=== PATIENT | female | born 1930 | race Caucasian/White ===

== ENCOUNTER 2018-08-08 21:15 | Inpatient (IN) | payer OTHER ==
[2018-08-08] MEDS: SOD CHLORIDE 0.9% 2,860 ML IV (22:01)
[2018-08-08 22:05] LABS: WHITE BLOOD COUNT 7.9 10^3/ul (4.8-10.8)
[2018-08-08 22:05] LABS: ABNORMAL IP MESSAGE 1; HEMATOCRIT 36.7 % (37.0-47.0); MEAN CORPUSCULAR HEMOGLOBIN 30.8 pg (29.0-33.0); MEAN CORPUSCULAR HGB CONC 32.7 g/dl (32.0-37.0); MEAN CORPUSCULAR VOLUME 94.1 fl (82.0-101.0); MEAN PLATELET VOLUME 13.1 fl (7.4-10.4); NUCLEATED RED BLOOD CELLS% 0.3 /100WBC (0.0-0.0); PLATELET COUNT 53 10^3/UL (140-415)
[2018-08-08 22:07] LABS: POSITIVE DIFF @See below
[2018-08-08 22:08] LABS: ADD MAN DIFF? YES
[2018-08-08 22:21] LABS: AMMONIA 55 umol/l (9-30)
[2018-08-08 22:23] LABS: ALANINE AMINOTRANSFERASE 36 IU/L (13-69); ALBUMIN 2.2 g/dl (3.3-4.9); ALBUMIN/GLOBULIN RATIO 0.88; ALKALINE PHOSPHATASE 116 IU/L (42-121); ANION GAP 9 (5-13); ASPARTATE AMINO TRANSFERASE 53 IU/L (15-46); BILIRUBIN,INDIRECT 1.1 mg/dl (0-1.1); BILIRUBIN,TOTAL 1.1 mg/dl (0.2-1.3); BLOOD UREA NITROGEN 39 mg/dl (7-20); CALCIUM 9.3 mg/dl (8.4-10.2); CARBON DIOXIDE 22 mmol/L (21-31); CHLORIDE 108 mmol/L (97-110); CREATININE 0.72 mg/dl (0.44-1.00); GLUCOSE 169 mg/dl (70-220); POTASSIUM 3.9 mmol/L (3.5-5.1); SODIUM 139 mmol/L (135-144); TOTAL PROTEIN 4.7 g/dl (6.1-8.1)
[2018-08-08 22:29] LABS: LACTIC ACID 4.3 mmol/L (0.5-2.0)
[2018-08-08 22:32] LABS: ACETAMINOPHEN < 10.0 ug/ml (10.0-30.0); ETHANOL < 10.0 mg/dl (0-0); SALICYLATE < 1.0 mg/dl (5.0-30.0)
[2018-08-08 22:37] LABS: ANISOCYTOSIS 2+ (0-0); BAND NEUTROPHILS #M 1.5 10^3/ul (0.0-0.6); BAND NEUTROPHILS % (M) 19 % (0-4); GIANT THROMBO% (M) 3 % (0-0); LYMPHOCYTES #M 0.3 10^3/ul (0.8-2.9); LYMPHOCYTES % (M) 5 % (15-51); MONOCYTES % (M) 1 % (0-11); PLATELET ESTIMATE DECREASED; POLYCHROMASIA 2+ (0-0); SEGMENTED NEUTROPHILS (M) % 75 % (39-77); SMUDGE%M 4 % (0-0)
[2018-08-08 22:39] LABS: FREE THYROXINE INDEX (Calc) 1.87 ug/ml (0.65-3.89); T4 (THYROXINE) 3.6 ug/dl (5.5-11.0); TROPONIN-I 0.727 ng/ml (0.000-0.120)
[2018-08-08 23:07] LABS: AMPHETAMINE/METHAMPHETAMINE Negative (NEGATIVE); BARBITURATES Negative (NEGATIVE); BENZODIAZEPINES Negative (NEGATIVE); CANNABINOIDS Negative (NEGATIVE); COCAINE Negative (NEGATIVE); OPIATES Negative (NEGATIVE)
[2018-08-08 23:42] LABS: ADD UMIC YES; UR ASCORBIC ACID NEGATIVE (NEGATIVE); UR BACTERIA FEW /HPF (NONE SEEN); UR BILIRUBIN (Dip) NEGATIVE (NEGATIVE); UR BLOOD (Dip) NEGATIVE (NEGATIVE); UR CLARITY SLIGHTLY CLOUDY (CLEAR); UR COLOR AMBER (YELLOW); UR GLUCOSE (Dip) NEGATIVE (NEGATIVE); UR KETONES (Dip) NEGATIVE (NEGATIVE); UR LEUKOCYTE ESTERASE (Dip) TRACE Leu/ul (NEGATIVE); UR MUCUS FEW /HPF (NONE SEEN); UR NITRITE (Dip) NEGATIVE (NEGATIVE); UR RBC 2 /HPF (0-5); UR SPECIFIC GRAVITY (Dip) 1.021 (1.003-1.030); UR SQUAMOUS EPITHELIAL CELL FEW /HPF (FEW); UR TOTAL PROTEIN (Dip) NEGATIVE (NEGATIVE); UR TRANSITIONAL EPI CELL FEW /HPF (NONE SEEN); UR UROBILINOGEN (Dip) 1+ mg/dL (NEGATIVE); UR WBC 15 /HPF (0-5)
[2018-08-08] MEDS: CEFEPIME 2GM/50 ML (PMX) 50 ML IVPB (23:49)
[2018-08-08] MEDS: VANCOMYCIN 1 GM (PMX) 250 ML IVPB (23:49)
[2018-08-08 23:57] LABS: LACTIC ACID 3.7 mmol/L (0.5-2.0)
[2018-08-09] MEDS ORDERED: NACL 0.9% 3 ML SYG IV
[2018-08-09] MEDS ORDERED: ACETAMINOPHEN 325 MG TAB PO
[2018-08-09] MEDS ORDERED: PIPER-TAZO 3.375 GM IV (PMX) 100 ML IVPB
[2018-08-09] MEDS ORDERED: ONDANSETRON 4 MG INJ IV ×2
[2018-08-09] MEDS: ALBUMIN HUMAN 25% 100 ML IV ×3 (01:08→02:09)
[2018-08-09 01:58] LABS: CREATINE KINASE 38 IU/L (23-200)
[2018-08-09 02:00] LABS: LACTIC ACID 3.3 mmol/L (0.5-2.0)
[2018-08-09 02:11] LABS: CK INDEX 12.4
[2018-08-09 02:15] LABS: TROPONIN-I 0.789 ng/ml (0.000-0.120)
[2018-08-09] MEDS: AZTREONAM 1 GM/NS (PMX) 50 ML IVPB (03:42)
[2018-08-09 07:54] LABS: ABNORMAL IP MESSAGE 1; HEMATOCRIT 35.1 % (37.0-47.0); HEMOGLOBIN 11.3 g/dl (12.0-16.0); MEAN CORPUSCULAR HEMOGLOBIN 30.5 pg (29.0-33.0); MEAN CORPUSCULAR HGB CONC 32.2 g/dl (32.0-37.0); MEAN CORPUSCULAR VOLUME 94.6 fl (82.0-101.0); MEAN PLATELET VOLUME 13.4 fl (7.4-10.4); NUCLEATED RED BLOOD CELLS% 0.2 /100WBC (0.0-0.0); PLATELET COUNT 42 10^3/UL (140-415); RED BLOOD COUNT 3.71 10^6/ul (4.20-5.40)
[2018-08-09 07:54] LABS: WHITE BLOOD COUNT 8.5 10^3/ul (4.8-10.8)
[2018-08-09 08:02] LABS: POSITIVE DIFF @See below
[2018-08-09 08:03] LABS: ADD MAN DIFF? YES
[2018-08-09 08:13] LABS: ALANINE AMINOTRANSFERASE 31 IU/L (13-69); ALBUMIN 2.8 g/dl (3.3-4.9); ALKALINE PHOSPHATASE 98 IU/L (42-121); ANION GAP 8 (5-13); ASPARTATE AMINO TRANSFERASE 72 IU/L (15-46); BILIRUBIN,INDIRECT 1.2 mg/dl (0-1.1); BILIRUBIN,TOTAL 1.2 mg/dl (0.2-1.3); BLOOD UREA NITROGEN 38 mg/dl (7-20); CARBON DIOXIDE 21 mmol/L (21-31); CHLORIDE 111 mmol/L (97-110); CREATININE 0.62 mg/dl (0.44-1.00); GLUCOSE 107 mg/dl (70-220); MAGNESIUM 1.9 mg/dl (1.7-2.5); POTASSIUM 4.3 mmol/L (3.5-5.1); SODIUM 140 mmol/L (135-144); TOTAL PROTEIN 5.5 g/dl (6.1-8.1)
[2018-08-09 08:14] LABS: ALBUMIN/GLOBULIN RATIO 1.03; CHOL/HDL RATIO 2.7 RATIO; CHOLESTEROL 81 mg/dl (100-200); HDL CHOLESTEROL 29 mg/dl (33-92); LDL CHOLESTEROL,CALCULATED 39 mg/dl; TRIGLYCERIDES 64 mg/dl (0-149)
[2018-08-09 08:15] LABS: CREATINE KINASE 64 IU/L (23-200)
[2018-08-09 08:16] LABS: LACTIC ACID 2.6 mmol/L (0.5-2.0)
[2018-08-09 08:25] LABS: CK INDEX 18.3
[2018-08-09 08:58] LABS: HEMOGLOBIN A1C 5.2 % (0-5.9)
[2018-08-09] MEDS: ASPIRIN (EC) 325 MG TAB PO (09:23)
[2018-08-09 10:01] LABS: B-TYPE NATRIURETIC PEPTIDE 7210 PG/ML (0-450)
[2018-08-09] MEDS: FUROSEMIDE 20 MG INJ IV ×2 (11:20→18:21)
[2018-08-09 11:33] LABS: ANISOCYTOSIS 1+ (0-0); BAND NEUTROPHILS % (M) 12 % (0-4); BURR CELLS 1+ (0-0); LYMPHOCYTES #M 0.3 10^3/ul (0.8-2.9); LYMPHOCYTES % (M) 4 % (15-51); MONOCYTES % (M) 1 % (0-11); OVALOCYTES 1+ (0-0); PLATELET ESTIMATE DECREASED; POIKILOCYTOSIS 2+ (0-0); POLYCHROMASIA 1+ (0-0); SEG NEUT #M 7.1 10^3/ul (1.6-7.5); SEGMENTED NEUTROPHILS (M) % 83 % (39-77); SMUDGE%M 9 % (0-0)
[2018-08-09 11:39] LABS: CREATINE KINASE 66 IU/L (23-200)
[2018-08-09 11:51] LABS: CK INDEX 21.2
[2018-08-09] MEDS ORDERED: VANCOMYCIN IV PER PHARMACY XX (12:00)
[2018-08-09] MEDS: IOHEXOL 300MG/ML 150 ML BTL (12:14)
[2018-08-09] MEDS: SOD CHLORIDE 0.9% 100 ML (12:14)
[2018-08-09] MEDS: IOHEXOL 14.3 MG(I)/ML (ADULT) BTL PO (12:27)
[2018-08-09] MEDS: VANCOMYCIN 1 GM 250 ML IVPB (13:27)
[2018-08-09] MEDS: MIDAZOLAM 1 MG/ML 2 ML INJ (15:16)
[2018-08-09] MEDS: FENTAnyl 50 MCG/ML VIAL (15:16)
[2018-08-09] MEDS: LIDOCAINE 1% (MDV) 20 ML INJ (15:17)
[2018-08-09 19:20] LABS: CREATINE KINASE 54 IU/L (23-200)
[2018-08-09 19:33] LABS: CK INDEX 25.7
[2018-08-09] MEDS: CEFEPIME 1GM/50 ML (PMX) 50 ML IVPB (20:31)
[2018-08-09] MEDS: ATORVASTATIN 20 MG TAB PO (20:31)
[2018-08-10] MEDS: FUROSEMIDE 20 MG INJ IV ×2 (06:08→17:11)
[2018-08-10 06:09] LABS: ADD MAN DIFF? NO
[2018-08-10 06:21] LABS: ABNORMAL IP MESSAGE 1; BASOPHILS % 0.3 % (0.0-2.0); EOSINOPHILS # 0.1 10^3/ul (0.0-0.5); EOSINOPHILS % 0.6 % (0.0-7.0); HEMATOCRIT 37.9 % (37.0-47.0); HEMOGLOBIN 12.7 g/dl (12.0-16.0); LYMPHOCYTES # 0.8 10^3/ul (0.8-2.9); LYMPHOCYTES % 7.7 % (15.0-51.0); MEAN CORPUSCULAR HEMOGLOBIN 31.1 pg (29.0-33.0); MEAN CORPUSCULAR HGB CONC 33.5 g/dl (32.0-37.0); MEAN CORPUSCULAR VOLUME 92.7 fl (82.0-101.0); MONOCYTES % 9.5 % (0.0-11.0); NEUTROPHIL # 8.1 10^3/ul (1.6-7.5); NEUTROPHILS % 81.3 % (39.0-77.0); RED BLOOD COUNT 4.09 10^6/ul (4.20-5.40); RED CELL DISTRIBUTION WIDTH 15.7 % (11.5-14.5)
[2018-08-10 06:31] LABS: POSITIVE DIFF @See below
[2018-08-10 06:32] LABS: PLATELET COUNT 34 10^3/UL (140-415)
[2018-08-10 06:54] LABS: ALANINE AMINOTRANSFERASE 50 IU/L (13-69); ALBUMIN 2.3 g/dl (3.3-4.9); ALBUMIN/GLOBULIN RATIO 0.92; ALKALINE PHOSPHATASE 102 IU/L (42-121); ANION GAP 7 (5-13); ASPARTATE AMINO TRANSFERASE 61 IU/L (15-46); BILIRUBIN,INDIRECT 1.1 mg/dl (0-1.1); BILIRUBIN,TOTAL 1.1 mg/dl (0.2-1.3); BLOOD UREA NITROGEN 38 mg/dl (7-20); CALCIUM 9.1 mg/dl (8.4-10.2); CARBON DIOXIDE 22 mmol/L (21-31); CHLORIDE 112 mmol/L (97-110); CREATININE 0.62 mg/dl (0.44-1.00); GLUCOSE 83 mg/dl (70-220); POTASSIUM 3.8 mmol/L (3.5-5.1); SODIUM 141 mmol/L (135-144); TOTAL PROTEIN 4.8 g/dl (6.1-8.1)
[2018-08-10] MEDS: ASPIRIN 81 MG TAB PO (08:41)
[2018-08-10] MEDS: VANCOMYCIN 1 GM 250 ML IVPB (13:11)
[2018-08-10] MEDS: CEFEPIME 1GM/50 ML (PMX) 50 ML IVPB (21:44)
[2018-08-10] MEDS: ATORVASTATIN 20 MG TAB PO (21:44)
[2018-08-10] MEDS: ACETAMINOPHEN 325 MG TAB PO (21:44)
[2018-08-11] MEDS: FUROSEMIDE 20 MG INJ IV (06:17)
[2018-08-11] MEDS: ASPIRIN 81 MG TAB PO (09:23)
[2018-08-11] MEDS: BISACODYL (EC) 5 MG TAB PO (09:25)
[2018-08-11] MEDS: ACETAMINOPHEN 325 MG TAB PO (10:45)
[2018-08-11] MEDS: COLLAGENASE 5 GM (UD JAR) TOP (14:37)
[2018-08-11] MEDS: VANCOMYCIN 1 GM 250 ML IVPB (14:38)
[2018-08-11] MEDS: CEFEPIME 1GM/50 ML (PMX) 50 ML IVPB (22:56)
[2018-08-11] MEDS: ATORVASTATIN 20 MG TAB PO (22:57)
[2018-08-12] MEDS: FUROSEMIDE 20 MG TAB PO (08:34)
[2018-08-12] MEDS: COLLAGENASE 5 GM (UD JAR) TOP (08:34)
[2018-08-12] MEDS: ASPIRIN 81 MG TAB PO (08:34)
[2018-08-12] MEDS: CEFTRIAXONE 1 GM/50 ML (PMX) 50 ML IVPB (14:23)
[2018-08-12] MEDS: DOCUSATE SODIUM 100 MG CAP PO (16:12)
[2018-08-12] MEDS: BISACODYL (EC) 5 MG TAB PO (21:10)
[2018-08-12] MEDS: ATORVASTATIN 20 MG TAB PO (21:11)
[2018-08-12] MEDS: ACETAMINOPHEN 325 MG TAB PO (22:04)
[2018-08-13] MEDS: ASPIRIN 81 MG TAB PO (09:27)
[2018-08-13] MEDS: FUROSEMIDE 20 MG TAB PO (09:28)
[2018-08-13] MEDS: COLLAGENASE 5 GM (UD JAR) TOP (09:28)
[2018-08-13] MEDS: CEFTRIAXONE 1 GM/50 ML (PMX) 50 ML IVPB (14:04)
[2018-08-13] MEDS ORDERED: ATORVASTATIN 20 MG TAB PO (21:00)
[2018-08-13] MEDS: ATORVASTATIN 20 MG TAB PO (23:20)
[2018-08-14] MEDS: BISACODYL (EC) 5 MG TAB PO (05:42)
[2018-08-14] MEDS ORDERED: ASPIRIN 81 MG TAB PO (09:00)
[2018-08-14] MEDS ORDERED: FUROSEMIDE 20 MG TAB PO (09:00)
[2018-08-14] MEDS: MULTIVITAMINS/MINERALS TAB PO (09:11)
[2018-08-14] MEDS: ASPIRIN 81 MG TAB PO (09:11)
[2018-08-14] MEDS: COLLAGENASE 5 GM (UD JAR) TOP (09:12)
[2018-08-14] MEDS: FUROSEMIDE 20 MG TAB PO (09:14)
[2018-08-14] MEDS: ASCORBIC ACID 250 MG TAB PO (10:42)
[2018-08-14] MEDS: ZINC SULFATE 220 MG CAP PO (10:42)
[2018-08-14] MEDS: CEFTRIAXONE 1 GM/50 ML (PMX) 50 ML IVPB (14:00)
[2018-08-14] MEDS: BALSAM PERU/CASTOR OIL 60 GM TUBE TOP ×2 (16:09→21:17)
[2018-08-14] MEDS: ATORVASTATIN 20 MG TAB PO (21:17)
[2018-08-15] MEDS: ASCORBIC ACID 250 MG TAB PO (09:06)
[2018-08-15] MEDS: MULTIVITAMINS/MINERALS TAB PO (09:07)
[2018-08-15] MEDS: FUROSEMIDE 20 MG TAB PO (09:07)
[2018-08-15] MEDS: ASPIRIN 81 MG TAB PO (09:07)
[2018-08-15] MEDS: ZINC SULFATE 220 MG CAP PO (09:07)
[2018-08-15] MEDS: BALSAM PERU/CASTOR OIL 60 GM TUBE TOP ×2 (09:08→21:40)
[2018-08-15] MEDS: COLLAGENASE 5 GM (UD JAR) TOP (09:08)
[2018-08-15] MEDS: CEFTRIAXONE 1 GM/50 ML (PMX) 50 ML IVPB (14:34)
[2018-08-15] MEDS: ATORVASTATIN 20 MG TAB PO (21:28)
[2018-08-16] MEDS: ZINC SULFATE 220 MG CAP PO (09:00)
[2018-08-16] MEDS: MULTIVITAMINS/MINERALS TAB PO (09:00)
[2018-08-16] MEDS: ASCORBIC ACID 250 MG TAB PO (09:00)
[2018-08-16] MEDS: ASPIRIN 81 MG TAB PO (09:00)
[2018-08-16] MEDS: FUROSEMIDE 20 MG TAB PO (09:00)
[2018-08-16] MEDS: BALSAM PERU/CASTOR OIL 60 GM TUBE TOP ×2 (09:43→20:36)
[2018-08-16] MEDS: COLLAGENASE 5 GM (UD JAR) TOP (10:02)
[2018-08-16 10:23] LABS: AADO2 Arterial 25.2 mmHg (7.0-24.0); Allen Test ACCEPTAB; Arterial Base Excess 1.5 mmol/L (-3.0-3); Arterial Blood Gas Oxygen Sat 98.8 mmHG (95.0-100.0); Arterial COHb 0.4 % (0.0-3.0); Arterial Fraction of Oxyhgb 98.2 % (93.0-99.0); Arterial HCO3 29.3 mmol/L (22.0-26.0); Arterial MetHb 0.2 % (0.0-1.5); Arterial pCO2 61.3 mmhg (35-45); MODE NASAL CANNULA; Site Right Radial
[2018-08-16] MEDS: CEFTRIAXONE 1 GM/50 ML (PMX) 50 ML IVPB (14:15)
[2018-08-16 19:59] LABS: AADO2 Arterial 108.9 mmHg (7.0-24.0); Allen Test ACCEPTAB; Arterial Base Excess 0.3 mmol/L (-3.0-3); Arterial Blood Gas Oxygen Sat 99.2 mmHG (95.0-100.0); Arterial COHb 0.3 % (0.0-3.0); Arterial Fraction of Oxyhgb 98.7 % (93.0-99.0); Arterial HCO3 27.1 mmol/L (22.0-26.0); Arterial MetHb 0.2 % (0.0-1.5); Arterial pCO2 52.5 mmhg (35-45); Blood Gas IEPAP 16/8; MODE MASK - BIPAP; Site Right Radial
[2018-08-16] MEDS: ATORVASTATIN 20 MG TAB PO (20:37)
[2018-08-17 06:15] LABS: ADD MAN DIFF? NO
[2018-08-17 06:26] LABS: ABNORMAL IP MESSAGE 1; BASOPHILS % 0.2 % (0.0-2.0); EOSINOPHILS % 0.2 % (0.0-7.0); HEMATOCRIT 42.5 % (37.0-47.0); HEMOGLOBIN 12.9 g/dl (12.0-16.0); LYMPHOCYTES # 0.5 10^3/ul (0.8-2.9); MEAN CORPUSCULAR HEMOGLOBIN 30.6 pg (29.0-33.0); MEAN CORPUSCULAR HGB CONC 30.4 g/dl (32.0-37.0); MEAN CORPUSCULAR VOLUME 100.7 fl (82.0-101.0); MEAN PLATELET VOLUME 10.9 fl (7.4-10.4); MONOCYTE # 0.5 10^3/ul (0.3-0.9); MONOCYTES % 4.2 % (0.0-11.0); NEUTROPHIL # 10.9 10^3/ul (1.6-7.5); NEUTROPHILS % 90.5 % (39.0-77.0); RED BLOOD COUNT 4.22 10^6/ul (4.20-5.40); RED CELL DISTRIBUTION WIDTH 16.6 % (11.5-14.5)
[2018-08-17 06:33] LABS: PLATELET COUNT 75 10^3/UL (140-415)
[2018-08-17 06:34] LABS: POSITIVE DIFF @See below
[2018-08-17 06:59] LABS: ANION GAP 7 (5-13); BLOOD UREA NITROGEN 41 mg/dl (7-20); CALCIUM 9.2 mg/dl (8.4-10.2); CARBON DIOXIDE 27 mmol/L (21-31); CHLORIDE 110 mmol/L (97-110); CREATININE 0.74 mg/dl (0.44-1.00); GLUCOSE 91 mg/dl (70-220); MAGNESIUM 2.3 mg/dl (1.7-2.5); POTASSIUM 5.4 mmol/L (3.5-5.1); SODIUM 144 mmol/L (135-144)
[2018-08-17 07:27] LABS: PHOSPHORUS 5.3 mg/dl (2.5-4.9)
[2018-08-17] MEDS: FUROSEMIDE 20 MG TAB PO (08:26)
[2018-08-17] MEDS: BALSAM PERU/CASTOR OIL 60 GM TUBE TOP ×2 (08:26→21:06)
[2018-08-17] MEDS: COLLAGENASE 5 GM (UD JAR) TOP (08:26)
[2018-08-17] MEDS: ASPIRIN 81 MG TAB PO (08:26)
[2018-08-17] MEDS: ASCORBIC ACID 250 MG TAB PO (08:26)
[2018-08-17] MEDS: ZINC SULFATE 220 MG CAP PO (08:26)
[2018-08-17] MEDS: MULTIVITAMINS/MINERALS TAB PO (08:26)
[2018-08-17] MEDS ORDERED: LORAZEPAM 2 MG INJ (12:40)
[2018-08-17] MEDS: LORAZEPAM 2 MG INJ IV (13:04)
[2018-08-17] MEDS: LEVETIRACETAM 1000 MG (PMX) 100 ML IVPB (13:16)
[2018-08-17 13:40] LABS: AADO2 Arterial 12.8 mmHg (7.0-24.0); Allen Test ACCEPTAB; Arterial Base Excess -3.3 mmol/L (-3.0-3); Arterial Blood Gas Oxygen Sat 97.1 mmHG (95.0-100.0); Arterial COHb 0.3 % (0.0-3.0); Arterial Fraction of Oxyhgb 96.5 % (93.0-99.0); Arterial HCO3 27.7 mmol/L (22.0-26.0); Arterial MetHb 0.3 % (0.0-1.5); MODE NASAL CANNULA; Site Right Radial
[2018-08-17] MEDS: ALBUTEROL/IPRATROPIUM (NEB) 3 ML AMP HHN ×3 (13:53→20:24)
[2018-08-17] MEDS: CEFTRIAXONE 1 GM/50 ML (PMX) 50 ML IVPB (14:45)
[2018-08-17] MEDS: FUROSEMIDE 20 MG INJ IV (17:21)
[2018-08-17 19:24] LABS: AADO2 Arterial 52.6 mmHg (7.0-24.0); Allen Test ACCEPTAB; Arterial Base Excess -2.7 mmol/L (-3.0-3); Arterial Blood Gas Oxygen Sat 95.3 mmHG (95.0-100.0); Arterial COHb 0.5 % (0.0-3.0); Arterial Fraction of Oxyhgb 94.5 % (93.0-99.0); Arterial HCO3 26.7 mmol/L (22.0-26.0); Arterial MetHb 0.3 % (0.0-1.5); Arterial pCO2 69.3 mmhg (35-45); Blood Gas IEPAP 22/8; MODE MASK - BIPAP; Site Right Radial
[2018-08-17] MEDS: ATORVASTATIN 20 MG TAB PO (21:00)
[2018-08-17] MEDS ORDERED: FUROSEMIDE 20 MG TAB PO (21:00)
[2018-08-18] MEDS: ALBUTEROL/IPRATROPIUM (NEB) 3 ML AMP HHN ×3 (01:23→14:10)
[2018-08-18] MEDS: FUROSEMIDE 20 MG INJ IV (05:23)
[2018-08-18 06:54] LABS: ADD MAN DIFF? NO
[2018-08-18 06:56] LABS: WHITE BLOOD COUNT 18.2 10^3/ul (4.8-10.8)
[2018-08-18 06:56] LABS: ABNORMAL IP MESSAGE 1; BASOPHIL # 0.1 10^3/ul (0.0-0.1); BASOPHILS % 0.3 % (0.0-2.0); EOSINOPHILS % 0.1 % (0.0-7.0); HEMATOCRIT 43.3 % (37.0-47.0); HEMOGLOBIN 13.1 g/dl (12.0-16.0); LYMPHOCYTES # 0.7 10^3/ul (0.8-2.9); LYMPHOCYTES % 3.9 % (15.0-51.0); MEAN CORPUSCULAR HGB CONC 30.3 g/dl (32.0-37.0); MEAN CORPUSCULAR VOLUME 102.4 fl (82.0-101.0); MEAN PLATELET VOLUME 12.8 fl (7.4-10.4); MONOCYTE # 0.8 10^3/ul (0.3-0.9); MONOCYTES % 4.1 % (0.0-11.0); NEUTROPHIL # 16.6 10^3/ul (1.6-7.5); NEUTROPHILS % 90.8 % (39.0-77.0); PLATELET COUNT 96 10^3/UL (140-415); RED BLOOD COUNT 4.23 10^6/ul (4.20-5.40); RED CELL DISTRIBUTION WIDTH 16.8 % (11.5-14.5)
[2018-08-18 07:03] LABS: POSITIVE DIFF @See below
[2018-08-18 07:27] LABS: ALANINE AMINOTRANSFERASE 33 IU/L (13-69); ALBUMIN 2.5 g/dl (3.3-4.9); ALKALINE PHOSPHATASE 113 IU/L (42-121); ANION GAP 7 (5-13); ASPARTATE AMINO TRANSFERASE 33 IU/L (15-46); BILIRUBIN,INDIRECT 0.7 mg/dl (0-1.1); BILIRUBIN,TOTAL 0.7 mg/dl (0.2-1.3); BLOOD UREA NITROGEN 53 mg/dl (7-20); CALCIUM 9.5 mg/dl (8.4-10.2); CARBON DIOXIDE 26 mmol/L (21-31); CHLORIDE 114 mmol/L (97-110); CREATININE 1.06 mg/dl (0.44-1.00); GLUCOSE 134 mg/dl (70-220); POTASSIUM 5.3 mmol/L (3.5-5.1); SODIUM 147 mmol/L (135-144); TOTAL PROTEIN 5.6 g/dl (6.1-8.1)
[2018-08-18 08:21] LABS: AADO2 Arterial 9.9 mmHg (7.0-24.0); Allen Test ACCEPTAB; Arterial Base Excess -5.9 mmol/L (-3.0-3); Arterial Blood Gas Oxygen Sat 94.4 mmHG (95.0-100.0); Arterial COHb 0.7 % (0.0-3.0); Arterial Fraction of Oxyhgb 93.5 % (93.0-99.0); Arterial HCO3 26.9 mmol/L (22.0-26.0); Arterial MetHb 0.3 % (0.0-1.5); Arterial pCO2 98.4 mmhg (35-45); Blood Gas IEPAP 22/8; Blood Gas PS 14; MODE MASK - BIPAP; Site Right Radial
[2018-08-18] MEDS: ASPIRIN 81 MG TAB PO (09:00)
[2018-08-18] MEDS: ZINC SULFATE 220 MG CAP PO (09:00)
[2018-08-18] MEDS: MULTIVITAMINS/MINERALS TAB PO (09:00)
[2018-08-18] MEDS: ASCORBIC ACID 250 MG TAB PO ×2 (09:00)
[2018-08-18] MEDS: ALBUMIN HUMAN 25% 100 ML IV (10:20)
[2018-08-18] MEDS ORDERED: LORAZEPAM 2 MG INJ IV (12:30)
[2018-08-18] MEDS ORDERED: PIPER-TAZO 3.375 GM IV (PMX) 100 ML IVPB (14:00)
[2018-08-18] MEDS: BALSAM PERU/CASTOR OIL 60 GM TUBE TOP (14:26)
[2018-08-18] MEDS: COLLAGENASE 5 GM (UD JAR) TOP (14:31)
[2018-08-18] MEDS: LEVETIRACETAM 500 MG (PMX) 100 ML IVPB (14:32)
[2018-08-18] MEDS: morphine (DRIP) 100 MG/100 ML 100 ML IV ×2 (20:46→21:53)
== END 2018-08-19 01:46 | disposition expired | DRG 871 ==
LOC: MS1 08-14 01:45 → TEL 08-16 11:16 → 6WM 23:49 → E/R 21:15
PROVIDERS: Family Medicine
PROC: 0F9430Z Drainage of Gallbladder with Drainage Device, Percutaneous Approach (ICD-10-PCS; principal; 2018-08-09)
DX: A40.1 Sepsis due to streptococcus, group B (principal); I21.4 Non-ST elevation (NSTEMI) myocardial infarction; J96.01 Acute respiratory failure with hypoxia; J18.9 Pneumonia, unspecified organism; J96.02 Acute respiratory failure with hypercapnia; I21.A1 Myocardial infarction type 2; I50.23 Acute on chronic systolic (congestive) heart failure; G93.40 Encephalopathy, unspecified; N39.0 Urinary tract infection, site not specified; E87.2 Acidosis; R65.20 Severe sepsis without septic shock; D69.6 Thrombocytopenia, unspecified; E86.0 Dehydration; I48.91 Unspecified atrial fibrillation; K81.9 Cholecystitis, unspecified; G30.9 Alzheimer's disease, unspecified; F02.80 Dementia in other diseases classified elsewhere, unspecified severity, without behavioral disturbance, psychotic disturbance, mood disturbance, and anxiety; I35.0 Nonrheumatic aortic (valve) stenosis; F03.90 Unspecified dementia, unspecified severity, without behavioral disturbance, psychotic disturbance, mood disturbance, and anxiety; I25.10 Atherosclerotic heart disease of native coronary artery without angina pectoris; G40.909 Epilepsy, unspecified, not intractable, without status epilepticus; R56.9 Unspecified convulsions; Z66 Do not resuscitate
CPT/HCPCS: 36415; 36600; 70450; 71045; 74177; 76705; 77012; 80048; 80053; 80061; 80307; 81001; 82140; 82550; 82553; 82803; 82962; 83036; 83605; 83735; 83880; 84100; 84436; 84443; 84479; 84484; 85025; 87040-91; 87070; 87075; 87086; 92526; 92610; 93005; 93306; 93970; 94640; 94660; 95819; 96360; 96361; 97162; 99291-25